=== PATIENT | female | born 1955 | race Caucasian/White ===

== ENCOUNTER 2017-07-25 06:13 | Emergency (ER) | payer BC ==
[2017-07-25 06:32] LABS: BILIRUBIN,URINE NEGATIVE (NEGATIVE); GLUCOSE, URINE (UA) NEGATIVE (NEGATIVE); KETONES,URINE (UA) NEGATIVE (NEGATIVE); LEUKOCYTE ESTERASE, URINE MODERATE (NEGATIVE); NITRITE,URINE NEGATIVE (NEGATIVE); OCCULT BLOOD,URINE LARGE (NEGATIVE); PH,URINE 8.5 PH (5.0-7.5); PROTEIN,URINE NEGATIVE (NEGATIVE); UROBILINOGEN,URINE 0.2 (NORMAL) E.U./dL (NORMAL)
[2017-07-25] MEDS ORDERED: PHENAZOPYRIDINE 100 MG TABLET PO STA (06:33)
[2017-07-25] MEDS ORDERED: NITROFURANTOIN MACRO 100 MG CAPSULE PO STA (06:33)
[2017-07-25 06:34] LABS: CLARITY,URINE HAZY (CLEAR)
[2017-07-25] MEDS ORDERED: ACETAMINOPHEN 325 MG TABLET PO STA (06:34)
[2017-07-25 06:40] LABS: BACTERIA,URINE Few /HPF (None Seen); RBC,URINE TNTC /HPF (0-5); SQUAMOUS EPITHELIAL CELL,UR FEW Squamous (<= Few)
--- NOTE | 2017-07-25 06:40 | ED Physician Documentation ---
PD HPI FEMALE - Stated complaint Stated Complaint: FEMALE - Chief complaint Chief Complaint: UTI - History obtained from History obtained from: Patient - History of Present Illness Timing - onset: Today Timing - details: Gradual onset, Still present Associated symptoms: Dysuria, Urinary frequency Similar symptoms before: Work up / diagnostics Recently seen: Not recently seen - Additional information Additional information: Patient is a 62 year old female who is presenting to the emergency department for dysuria and increased urinary frequency. Patient states that she normally gets urinary tract infections when she doesn't urinate after intercourse. Patient states that she had intercourse two days ago and that is likely what is causing her symptoms. Review of Systems Eyes: reports: Reviewed and negative Ears: reports: Reviewed and negative Nose: reports: Reviewed and negative Throat: reports: Reviewed and negative Cardiac: reports: Reviewed and negative Respiratory: reports: Reviewed and negative GI: reports: Abdominal Pain. denies: Vomiting : reports: Dysuria, Frequency. denies: Hematuria Skin: denies: Rash, Lesions Musculoskeletal: reports: Back pain Neurologic: reports: Reviewed and negative Immunocompromised: denies: Immunocompromised PD PAST MEDICAL HISTORY - Past Medical History Past Medical History: No - Past Surgical History Past Surgical History: No - Present Medications Home Medications: Ambulatory Orders Medication Instructions Recorded Confirmed Nitrofurantoin Monohyd/M-Cryst 100 mg PO BID 5 Days capsule 07/25/17 [Macrobid 100 mg Capsule] Ondansetron Odt [Zofran] 4 mg TL Q6H PRN #20 tablet 07/25/17 Phenazopyridine HCl [Pyridium] 200 mg PO TID PRN #6 tablet 07/25/17 - Allergies Allergies/Adverse Reactions: Allergies Allergy/AdvReac Type Severity Reaction Status Date / Time Sulfa (Sulfonamide Allergy Anaphylaxis Verified 07/25/17 06:24 Antibiotics) - Social History Does the pt smoke?: No Smoking Status: Never smoker Does the pt drink ETOH?: Yes Does the pt have substance abuse?: No - Immunizations Immunizations are current?: Yes - POLST Patient has POLST: No PD ED PE NORMAL - General General: Alert and oriented X 3, No acute distress - HEENT HEENT: Atraumatic, PERRL - Cardiac Cardiac: RRR - Respiratory Respiratory: No respiratory distress - Abdomen Abdomen: Non distended - Derm Derm: Normal color, Warm and dry, No rash - Extremities Extremities: No deformity, No edema - Neuro Neuro: Alert and oriented X 3, No motor deficit, Normal speech - Psych Psych: Normal mood Results - Vitals Vitals: Vital Signs - 24 hr 07/25/17 06:20 Temperature 36.2 C L Heart Rate 53 L Respiratory 18 Rate Blood Pressure 104/83 H O2 Saturation 100 Oxygen O2 Source Room air - Labs Labs: Laboratory Tests 07/25/17 06:25 Urine Color YELLOW Urine Clarity HAZY Urine pH 8.5 H Ur Specific [place] 1.010 Urine Protein NEGATIVE Urine Glucose (UA) NEGATIVE Urine Ketones NEGATIVE Urine Occult Blood LARGE H Urine Nitrite NEGATIVE Urine Bilirubin NEGATIVE Urine Urobilinogen 0.2 (NORMAL) Ur Leukocyte Esterase MODERATE H Urine RBC TNTC H Urine WBC 11-25 H Ur Squamous Epith Cells FEW Squamous Urine Bacteria Few Ur Microscopic Review INDICATED Urine Culture Comments INDICATED PD MEDICAL DECISION MAKING - ED course Complexity details: reviewed old records, reviewed results, re-evaluated patient , considered differential, d/w patient ED course: Patient was seen and examined at bedside. patient was well appearing but uncomfortable. Urine was collected. patient was treated with macrobid and pyridium for a urinary tract infection. Patient required no further work up and was stable for discharge with outpatient follow up. Departure - Departure Disposition: 01 Home, Self Care Clinical Impression: Urinary tract infection Condition: Good Instructions: ED UTI Cystitis Female Follow-Up: primary,care provider [Other] - As Needed Prescriptions: Nitrofurantoin Monohyd/M-Cryst [Macrobid 100 mg Capsule] 100 mg PO BID 5 Days capsule Ondansetron Odt [Zofran] 4 mg TL Q6H PRN #20 tablet PRN Reason: Nausea / Vomiting Phenazopyridine HCl [Pyridium] 200 mg PO TID PRN #6 tablet PRN Reason: dysuria Comments: Your symptoms today are being caused by a urinary tract infection. You had your first dose of antibiotics and pyridium today. You will be on the antibiotics for five days. it is important to stay well hydrated. You can take motrin or tylenol as needed if the symptoms persist for more than a few days. You may return to the emergency department at any time for new, worsening or uncontrollable symptoms.
[2017-07-25 06:53] VITALS: BP 106/60
== END 2017-07-25 06:48 | disposition home or self-care (01) ==
LOC: ED 06:13
DX: N39.0 Urinary tract infection, site not specified (principal)
CPT/HCPCS: 81001; 87086; 87181; 99283; A9270; 81003